=== PATIENT | female | born 2000 | race Caucasian/White ===

== ENCOUNTER 2020-05-27 06:42 | Outpatient (CLI) | payer SELFPAY ==
--- NOTE | 2020-05-27 06:57 | NM_ITS ---
WS: [id number] NUCLEAR MEDICINE HIDA SCAN CLINICAL INFORMATION: CHRONIC ABDOMINAL PAIN TECHNIQUE: Following intravenous administration of 7.7 mCi of technetium 99m mebrofenin, images of th e abdomen were obtained over the course of 60 minutes. Next, gallbladder ejection fraction was determ ined by obtaining preprandial and one-hour postprandial images of the gallbladder following oral gary stion of Ensure. COMPARISON: None. FINDINGS: Normal hepatic uptake at 5 minutes. Right hepatic lobe appears enlarged. Photopenic defect in the lef t hepatic lobe suspicious for underlying hepatic lesion or hepatic cyst. This can be further evaluate d with contrast-enhanced CT abdomen pelvis liver phase protocol. No prior examinations for compariso n. Gallbladder is visualized by 10 to 15 minutes. No evidence of acute cholecystitis. Normal small bowel activity. No evidence of choledocholithiasis. Contrast reflux visualized into the stomach. Normal gallbladder ejection fraction 98%. No evidence of chronic cholecystitis. NM/NM hepatobiliary w phar* [id number] IMPRESSION: 1. No evidence of acute or chronic cholecystitis. 2. Normal gallbladder ejection fraction 98%. No evidence of chronic cholecysti tis. 3. Photopenic defect in the left hepatic lobe suspicious for underlying hepati c lesion. Recommend further evaluation with contrast-enhanced CT abdomen pelvis liver phase protocol. 4. Hepatomegaly.
== END 2020-05-27 06:43 | disposition home or self-care (01) ==
LOC: RAD 06:46
PROVIDERS: Visit Provider Nurse Practitioner Family
DX: R11.2 Nausea with vomiting, unspecified (principal); R10.9 Unspecified abdominal pain; G89.29 Other chronic pain; R16.0 Hepatomegaly, not elsewhere classified
CPT/HCPCS: 78227; A9537

== ENCOUNTER → 2020-06-24 15:23 | Outpatient (BNVA) | payer SELFPAY | PROVIDERS: PCP Nurse Practitioner Family; Visit Provider Internal Medicine | DX: Z01.812 Encounter for preprocedural laboratory examination (principal); Z20.828 Contact with and (suspected) exposure to other viral communicable diseases | CPT/HCPCS: 87635 ==

== ENCOUNTER 2020-06-25 11:50 | Outpatient (CLI) | payer SELFPAY ==
--- NOTE | 2020-06-25 12:02 | CT_ITS ---
WS: [id number] CT ABDOMEN WITH CONTRAST HISTORY: HEPATOMEGALY Contiguous single phase 5 mm axial imaging performed to the abdomen. Oral contrast has been provided. Coronal and sagittal reformats are submitted. All CT scans at [facility] use at least on e of these dose optimization techniques: automated exposure control; mA and/or kV adjustment per saji ent size (includes targeted exams where dose is matched to clinical indication); or iterative reconst ruction. CONTRAST: Omnipaque 300; 75 mL IV. DLP: 360.85 mGycm COMPARISON: Nuclear medicine hepatobiliary scan 05/27/2020. Lower thorax: Unremarkable. Liver: Liver is normal size extending over length of 15 cm. There is a Nikolas's lobe present. There a re no masses identified. Photopenic defect on the recent HIDA scan is probably the falciform ligament . No bile duct dilatation. Gallbladder: Normal. Pancreas: Normal. Spleen: Normal. Adrenals: Normal. Right kidney: Normal. Left kidney: Normal. Aorta: Normal. GI tract: Marked constipation the visualized GI tract throughout the abdomen. No adenopathy or free fluid. Abdominal wall: No hernia. Visualized osseous structures: 2 mm anterolisthesis of L5. Bilateral pars defects at L5. CT/CT abdomen w con* [id number] IMPRESSION: 1. Normal size liver. Nikolas's lobe and no mass. 2. Grade 1 spondylolisthesis of L5 with bilateral pars defects. 3. No ascites or adenopathy. 4. Constipation.
[2020-06-25] MEDS: iohexol 300 mg/mL 50 mL Btl PO (12:43)
[2020-06-25] MEDS: iohexol 300 mg/mL 100 mL Btl IV (13:03)
== END 2020-06-25 11:51 | disposition home or self-care (01) ==
LOC: RADWPI 11:56
PROVIDERS: PCP Nurse Practitioner Family; Visit Provider Nurse Practitioner Family
DX: R16.0 Hepatomegaly, not elsewhere classified (principal); K59.00 Constipation, unspecified; M43.16 Spondylolisthesis, lumbar region; Q44.7 Other congenital malformations of liver
CPT/HCPCS: 74160; Q9967

== ENCOUNTER 2020-06-30 08:34 | Day surgery (SDC) | payer SELFPAY ==
[2020-06-26 10:21] VITALS: BMI 19.7
[2020-06-30 08:55] VITALS: BP 120/75; PULSE 70; RESP 18; TEMP 37.3; O2SAT 99
[2020-06-30] MEDS: sodium chloride 0.9% 1,000 ML 30 ML IV (09:09)
--- NOTE | 2020-06-30 09:14 | ANES.PREANE2 ---
Pre-Anesthetic Assessment Pre-Anesthetic Assessment: Height/Weight: Height 1.52 m Weight 45.813 kg Temp Pulse Resp BP Pulse Ox 99.2 F 70 18 120/75 99 06/30/20 08:55 06/30/20 08:55 06/30/20 08:55 06/30/20 08:55 06/30/20 08:55 Preop Diagnosis: EGD Proposed Procedure: Operation Date: 06/30/20 10:00 Proposed Procedures p EGD 44186 R10.11(Not Applicable) - Martin Finney MD Familial anesthetic complications: None Was Beta Ana taken within 24 hours: N/A Last intake: Intake Last Liquid Date 06/29/20 Last Liquid Time 20:00 Last Solid Date 06/29/20 Last Solid Time 23:50 Social: Social History: No alcohol and No tobacco Exam: Pre-Anes Outpt Exam: alert, oriented x 3, clear to auscultation bilaterally and regular rate & rhythm Airway: Cervical ROM: WNL MP: 2 Dentition: Full Anesthetic Plan: ASA status: 1 Anesthesia: MAC Risk of > 500 ml blood loss (7ml/kg in children): No Meds/Allergies Current Medications: Current Medications Generic Name Dose Route Start Last Admin Trade Name Freq PRN Reason Stop Dose Admin Sodium Chloride 1,000 mls @ 30 ml s/hr 06/30/20 08:45 06/30/20 09:09 Sodium Chloride 0.9% IV 30 mls/hr .Q24H TEE Administration PFSH Anesthesia PFSH: Social History (Updated 06/24/20 @ 13:59 by RYANN Hunt) Smoking and tobacco status: never smoked Alcohol intake: never Adopted: No Marital status: Single History of recent travel: No Data Anesthesia Cardiac Studies: No Data to Display
--- NOTE | 2020-06-30 09:32 | W.PM.OPSUD ---
Surgery/Procedure H&P Update DATE OF PROCEDURE: June 30, 2020 DATE H&P PERFORMED: 06/24/20 PREOP DIAGNOSIS: EGD PLANNED PROCEDURE: Operation Date: 06/30/20 10:00 Proposed Procedures p EGD 87172 R10.11(Not Applicable) - Martin Finney MD
[2020-06-30 10:55] LABS: OR HCG Qualitative Urine Negative (Negative)
[2020-06-30 10:58] VITALS: BP 109/57; PULSE 79; RESP 16; TEMP 36.8; O2SAT 99
[2020-06-30 11:13] VITALS: BP 108/75; PULSE 72; RESP 16; TEMP 36.7; O2SAT 100
--- NOTE | 2020-06-30 15:50 | ANE.PACU2 ---
Inpatient post-anesthesia follow up: Airway intact: Yes Vital signs: Temperature 98.0 F Pulse Rate 72 Respiratory Rate 16 Blood Pressure 108/75 Pulse Oximetry 100 Oxygen Delivery Me thod Room Air Oxygen Flow Rate 3 Fraction of Inspir ed Oxygen Hydration adequate: Yes Nausea and vomiting: No Pain level: 1 Mental status: Baseline
== END 2020-06-30 12:10 | disposition home or self-care (01) ==
PROVIDERS: Anesthesiology; PCP Nurse Practitioner Family; Visit Provider Internal Medicine
PROC: 0DJ08ZZ Inspection of Upper Intestinal Tract, Via Natural or Artificial Opening Endoscopic (ICD-10-PCS; CPT 43235; principal; 2020-06-30 10:00)
DX: R10.11 Right upper quadrant pain (principal)
CPT/HCPCS: 43235; 84703; J7030

== ENCOUNTER → 2020-08-21 13:50 | Outpatient (BNVA) | payer SELFPAY | PROVIDERS: PCP Nurse Practitioner Family; Visit Provider Surgery | DX: Z20.822 Contact with and (suspected) exposure to COVID-19 (principal) | CPT/HCPCS: 87635 ==

== ENCOUNTER 2020-08-27 05:28 | Day surgery (SDC) | payer SELFPAY ==
[2020-08-26 15:10] VITALS: BMI 21.1
[2020-08-27] VITALS (9 sets, daily range): BP systolic 109–124; BP diastolic 75–85; PULSE 62–83; RESP 6–21; TEMP 36.4–37; O2SAT 99–100
[2020-08-27 06:17] LABS: OR HCG Qualitative Urine Negative (Negative)
[2020-08-27] MEDS: sodium chloride 0.9% 1,000 ML 30 ML IV (06:34)
--- NOTE | 2020-08-27 06:43 | W.PM.OPSFHP ---
Same Day Surgery H&P Indication for Procedure/HPI DATE OF PROCEDURE: August 27, 2020 CHIEF COMPLAINT/INDICATIONFOR SURGICAL PROCEDURE: lap amara PREOP DIAGNOSIS: EGD PLANNED PROCEDRUE: Operation Date: 08/27/20 07:00 Proposed Procedures p LAPAROSCOPIC POSS OPEN CHOLECYSTECTOMY 55393 r10.11(Not Applicable) - Jaden Fitzgerald MD Medications/Allergies* Home Medications Medication Instructions Recorded Confirmed Type Wellbutrin 150 mg PO DAILY 08/26/20 08/26/20 History Allergies/Adverse Reactions Allergy/AdvReac Type Severity Reaction Status Date / Time No Known Allergies Allergy Verified 08/26/20 15:08 Current Medications: Generic Name Dose Route Start Last Admin Trade Name Freq PRN Reason Stop Dose Admin Sodium Chloride 1,000 mls @ 30 mls/hr 08/27/20 06:15 08/27/20 06:34 Sodium Chloride 0.9% IV 08/28/20 06:14 30 mls/hr .Q24H TEE Administration Pertinent History/Comorbid Conditions* Medical History (Updated 07/21/20 @ 12:38 by Jaden Fitzgerald MD) GERD (gastroesophageal reflux disease) Surgical History (Updated 07/21/20 @ 09:12 by Jaden Fitzgerald MD) H/O esophagogastroduodenoscopy Social History Smoking and tobacco status: never smoked Alcohol intake: never Adopted: No Marital status: Single History of recent travel: No Pertinent Exam Findings alert, oriented x 3 and regular rate & rhythm Recommendations Surgery/Procedure today Coding Level of Care Code 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
[2020-08-27] MEDS: scopolamine 1.5 Patch 1 PATCH TRANSDERMA (06:58)
--- NOTE | 2020-08-27 07:05 | ANES.PREANE2 ---
Pre-Anesthetic Assessment Pre-Anesthetic Assessment: Height/Weight: Height 1.52 m Weight 48.988 kg Temp Pulse Resp BP Pulse Ox 98.6 F 83 18 124/84 100 08/27/20 06:12 08/27/20 06:12 08/27/20 06:12 08/27/20 06:12 08/27/20 06:12 Preop Diagnosis: ruq pain Proposed Procedure: Operation Date: 08/27/20 07:00 Proposed Procedures p LAPAROSCOPIC POSS OPEN CHOLECYSTECTOMY 82649 r10.11(Not Applicable) - Jaden Fitzgerald MD Was Beta Ana taken within 24 hours: N/A Was Clonidine taken within 24 hours: N/A Last intake: Intake Last Liquid Date 08/26/20 Last Liquid Time 17:00 Last Solid Date 08/26/20 Last Solid Time 17:00 Social: Social History: No alcohol and No tobacco Exam: Pre-Anes Outpt Exam: alert, oriented x 3, clear to auscultation bilaterally and regular rate & rhythm Airway: Submandibular: WNL Cervical ROM: WNL MP: 2 Dentition: Full History/ROS: No significant history except as noted Neuropsych: Neuropsych: Anxiety and Depression Anesthetic Plan: ASA status: 2 Anesthesia: General Risk of > 500 ml blood loss (7ml/kg in children): No Meds/Allergies Current Medications: Current Medications Generic Name Dose Route Start Last Admin Trade Name Freq PRN Reason Stop Dose Admin Sodium Chloride 1,000 mls @ 30 ml s/hr 08/27/20 06:15 08/27/20 06:34 Sodium Chloride 0.9% IV 08/28/20 06:14 30 mls/hr .Q24H TEE Administration PFSH Anesthesia PFSH: Medical History GERD (gastroesophageal reflux disease) Surgical History H/O esophagogastroduodenoscopy Social History Smoking and tobacco status: never smoked Alcohol intake: never Adopted: No Marital status: Single History of recent travel: No Data Anesthesia Other Labs: Laboratory Results - last 48 hr 08/27/20 06:09 Urine HCG, Qual Negative Cardiac Studies: No Data to Display
--- NOTE | 2020-08-27 07:58 | SUR.PHASEI ---
PT SLEEPS QUIETLY WITH GOOD RESP NOTED , ORAL AIRWAY IN PLACE, VSS ABD SOFT FLAT WITH 4 SITES WITH EXOFIN D/I BILAT SCDS ON.
--- NOTE | 2020-08-27 08:04 | SUR.PHASEI ---
ORAL AIRWAY OUT PT MOVES AND TURNS HEAD BUT DOES NOT OPEN EYES OR RESPOND VERBALLY.
--- NOTE | 2020-08-27 08:09 | PM.OP ---
Operative Report Date of procedure: August 27, 2020 Pre-op Diagnosis: Chronic cholecystitis Post-op diagnosis: same Procedure Done: Laparoscopic cholecystectomy Specimens removed/disposition: Gallbladder Surgeon: Jaden Fitzgerald Anesthesia: General Condition: stable Disposition: PACU Procedure: The patient was taken to the operating room and was intubated under general anesthesia. After the antibiotic had been administered, the abdomen was prepped and draped in a sterile manner. Using a #15 blade, a 1 centimeter infraumbilical curvilinear incision was made and using an open Shilpi technique the peritoneal cavity was entered. A 10 millimeter port was placed and 15 millimeters of pneumoperitoneum was created. A 10 millimeter, 30 degrees scope was then introduced. Three 5 millimeter ports were placed in the epigastric, midclavicular and the anterior axillary line two fingerbreadths below the costal margin on the right side under the direct visualization. Ratcheted forceps were introduced into the lateral most port and was used to retract the fundus of the gallbladder cephalad and using forceps the infundibulum of the gallbladder was retracted laterally. Using L-hook cautery the peritoneum overlying the Calot's triangle was opened medially and laterally until the cystic duct and the cystic artery were skeletonized. Dissection was carried along the body of the gallbladder and after ensuring critical view of safety, 4 clips applied on the cystic duct and 3 clips applied on the cystic artery and cut leaving, 3 clips on the remaining portion of the duct and 2 clips on the remaining portion of the artery. The rest of the gallbladder was dissected off the liver using L-hook cautery. There was no bleeding or bile leaking noted from the gallbladder fossa and the clips appeared to be in place. An EndoCatch bag was introduced to remove the gallbladder. All the ports were removed under direct visualization and there was no bleeding noted from the port sites. The fascia of the umbilicus was closed using [id number] 0 Vicryl sutures and the subcutaneous tissue was approximated using 3-0 Vicryl sutures. The skin at all four ports were closed using 4-0 Monocryl and Dermabond. A total of 10 millimeters of 0.5% Marcaine was infiltrated around the port sites. The patient was stable throughout the procedure.
[2020-08-27] MEDS: HYDROcodone-acetaminophen 5-325 mg Tablet 1 TAB PO (09:01)
--- NOTE | 2020-08-27 13:05 | ANE.PACU2 ---
Inpatient post-anesthesia follow up: Airway intact: Yes Vital signs: Temperature 97.8 F Pulse Rate 64 Respiratory Rate 18 Blood Pressure 115/80 Pulse Oximetry 100 Oxygen Delivery Me thod Room Air Oxygen Flow Rate 6 Fraction of Inspir ed Oxygen Hydration adequate: Yes Nausea and vomiting: No Pain level: 2 Mental status: Baseline
== END 2020-08-27 10:00 | disposition home or self-care (01) ==
PROVIDERS: Anesthesiology; PCP Nurse Practitioner Family; Visit Provider Surgery
PROC: 0FT44ZZ Resection of Gallbladder, Percutaneous Endoscopic Approach (ICD-10-PCS; CPT 47562; principal; 2020-08-27 07:00)
DX: K81.1 Chronic cholecystitis (principal); F41.9 Anxiety disorder, unspecified; F32.9 Major depressive disorder, single episode, unspecified; K21.9 Gastro-esophageal reflux disease without esophagitis
CPT/HCPCS: 47562; 81025; 84703; 88304; J0690; J1100; J2250; J2405; J2704; J2710; J3010; J3490; J7030

== ENCOUNTER 2021-08-25 09:10 | Emergency (ER) | payer MEDICAID, SELFPAY ==
[2021-08-25 09:22] VITALS: BP 117/77; PULSE 92; RESP 16; O2SAT 99; BMI 19.5
--- NOTE | 2021-08-25 09:29 | W.ED.DIZZY ---
HPI - Dizziness General: Chief Complaint: Dizziness Stated Complaint: dizziness/nausea Time Seen by Provider: 08/25/21 09:11 Source: patient Mode of arrival: ambulatory Limitations: no limitations History of Present Illness: HPI Narrative: Patient is a 20-year-old female presents to ED today with a complaint of dizziness and nausea. Patient states she woke up this morning and felt normal. She states she was at work when she began feeling nauseous and lightheaded. She felt like she might pass out but never did. Patient states she never had any chest pain, shortness of breath, difficulty breathing, or palpitations. No syncopal episode. She admittedly has not ate anything this morning. Patient states she has had previous episodes like this but not in many months. She states her dizziness seems to be worse when she goes from a seated to standing position quickly. Patient upon arrival to the ED is seated on her bed and states her symptoms have greatly improved. Symptoms do not seem to be brought on by head movement or exertion. She is not having any visual changes. No tinnitus, hearing loss, ear pain. She reports a stomach bug approximately a week ago but has not had any recent vomiting or diarrhea. No fevers. No headache. MD elicited complaint: dizziness, lightheadedness and other (nausea) Onset (ago): hour(s) Timing: intermittent Context: change in body position History of similar symptoms: Yes Exacerbating factors: change in body position Relieving factors: rest Associated symptoms: Reports nausea; Denies chest pain, chills, headache(s), malaise, palpitations, syncope or vomiting Associated neuro symptoms: Deny confusion or numbness in extremities Stroke scale total: 0 Review of Systems Const: Denies: fever(s), chills, body aches, fatigue or malaise Eyes: Denies: change in vision, blurry vision, photophobia, floaters or seeing flashes Card: Reports: lightheadedness; Denies: chest pain, palpitations, irregular heart rhythm, edema, swelling of feet/ankles, syncope, pre-syncope, dyspnea on exertion, orthopnea, leg pain with exertion or acrocyanosis Resp: Denies: dyspnea, productive cough, non-productive cough, wheezing, hemoptysis or chest congestion GI: Reports: nausea; Denies: abdominal pain, vomiting, diarrhea or change in bowel habits : Denies: flank pain, dysuria, hematuria or pelvic pain Musc: Denies: neck pain, back pain, extremity pain or joint pain Skin/Breast: Denies: rash Neuro: Denies: headache(s), numbness in extremities, weakness in extremities, sensory changes, lack of coordination, difficulty walking, frequent falls, confusion, Slurred speech present, difficulty communicating thoughts or seizure-like activity PFSH ED PFSH: Medical History GERD (gastroesophageal reflux disease) Surgical History H/O esophagogastroduodenoscopy Status post laparoscopic cholecystectomy (08/27/20) Social History Smoking and tobacco status: never smoked Alcohol intake: never Adopted: No Marital status: Single History of recent travel: No Physical Exam Const: COMMON NORMALS: no acute distress, patient oriented x3, no limitations, alert and well nourished ORIENTATION/CONSCIOUSNESS: Yes awake, Yes oriented to person, Yes oriented to place and Yes oriented to time HENMT: COMMON NORMALS: normocephalic, atraumatic, hearing grossly normal bilaterally, EAC's normal and TM's normal bilaterally HEAD & SCALP: normal to inspection, normocephalic and atraumatic EXTERNAL AUDITORY CANAL: EAC's normal TYMPANIC MEMBRANE: TM's normal bilaterally Eye: COMMON NORMALS: Equal, round and reactive pupils present and EOMs intact bilaterally GENERAL EYE: appearance normal, both eyes and all related structures PUPIL: Yes Equal, round and reactive pupils present OTHER: no nystagmus Neck/C-Spine: COMMON NORMALS: full ROM, no lymphadenopathy and no meningeal signs Resp: COMMON NORMALS: normal respiratory effort and clear to auscultation bilaterally AUSCULTATION: clear to auscultation bilaterally Cardio: COMMON NORMALS: regular rate and regular rhythm RATE: regular rate RHYTHM: regular rhythm Extremity: COMMON NORMALS: normal to inspection, capillary refill normal, no joint enlargement, no clubbing, cyanosis or edema, no calf tenderness and no pedal edema Neuro: ARLIN COMA SCALE: document GCS findings [place] coma scale eye opening: Spontaneous [place] coma scale verbal response: Orientated Arlin coma scale motor response: Obey commands [place] coma scale total score: 15 COMMON NORMALS: patient oriented x3, CN's II-XII intact bilaterally, moves all extremities, no focal motor deficits, no sensory deficits noted and gait normal SENSORIUM/ORIENTATION: Yes alert, Yes oriented to person, Yes oriented to place and Yes oriented to time MENINGEAL SIGNS: Yes no meningeal signs MOTOR EXAM: 5/5 motor strength present throughout Skin: COMMON NORMALS: no rashes or lesions noted GENERAL SKIN EXAM: no rashes or lesions noted Course Vital Signs: Vital signs: Vital Signs Pulse Rate 93 08/25/21 09:59 Respiratory Rate 16 08/25/21 09:22 Blood Pressure 110/73 08/25/21 09:59 Pulse Oximetry 99 08/25/21 09:22 MDM - Dizziness Medical Decision Making Patient continues to feel improved while here. Blood work/UA is unremarkable. Vital signs are stable with negative orthostatics. Recommend rest and follow up with PCP if symptoms persist. Lab Data : 08/25/21 09:35 08/25/21 09:35 Laboratory Results WBC 7.4 10^3/uL (4.0-10.0) 08/25/21 09:35 RBC 4.65 10^6/uL (4.1-5.3) 08/25/21 09:35 Hgb 13.2 g/dL (11.5-15.3) 08/25/21 09:35 Hct 40.2 % (37.0-47.0) 08/25/21 09:35 MCV 86.5 fl (81-99) 08/25/21 09:35 MCH 28.4 pg (28.0-34.0) 08/25/21 09:35 MCHC 32.8 g/dL (30.0-36.0) 08/25/21 09:35 RDW 14.1 % (12.1-15.1) 08/25/21 09:35 Plt Count 197 10^3/cmm (130-400) 08/25/21 09:35 MPV 11.6 fL (7.4-10.4) H 08/25/21 09:35 Neut % (Auto) 74.2 % 08/25/21 09:35 Lymph % (Auto) 13.9 % 08/25/21 09:35 Cataño % (Auto) 7.9 % 08/25/21 09:35 Eos % (Auto) 3.0 % 08/25/21 09:35 Baso % (Auto) 0.7 % 08/25/21 09:35 Neut # (Auto) 5.52 10^3/uL (1.8-7.7) 08/25/21 09:35 Lymph # (Auto) 1.0 10^3/uL (0.8-4.8) 08/25/21 09:35 Cataño # (Auto) 0.6 10^3/uL (0.2-0.9) 08/25/21 09:35 Eos # (Auto) 0.2 10^3/uL (0.0-0.8) 08/25/21 09:35 Baso # (Auto) 0.1 10^3/uL (0.0-0.1) 08/25/21 09:35 Nucleated RBC % (auto) 0 % 08/25/21 09:35 Nucleated RBCs # 0.0 /100WBC 08/25/21 09:35 Sodium 134 mmol/L (136-145) L 08/25/21 09:35 Potassium 3.8 mmol/L (3.5-5.1) 08/25/21 09:35 Chloride 100 mmol/L (98-107) 08/25/21 09:35 Carbon Dioxide 24 mmol/L (22-29) 08/25/21 09:35 Anion Gap 13.8 (5-19) 08/25/21 09:35 BUN 18 mg/dL (6-20) 08/25/21 09:35 Creatinine 0.8 mg/dL (0.5-0.9) 08/25/21 09:35 GFR Calculation 90.5 mL/min (90-130) 08/25/21 09:35 Glucose 99 mg/dL (65-115) 08/25/21 09:35 Calculated Osmolality 280 mOsm/kg (285-295) L 08/25/21 09:35 Calcium 9.6 mg/dL (8.5-10.5) 08/25/21 09:35 Total Bilirubin 0.4 mg/dL (0.15-1.2) 08/25/21 09:35 AST 20 U/L (0-32) 08/25/21 09:35 ALT 12 U/L (0-33) 08/25/21 09:35 Alkaline Phosphatase 78 IU/L (35-105) 08/25/21 09:35 Total Protein 7.1 g/dL (6.6-8.7) 08/25/21 09:35 Albumin 4.5 g/dL (3.5-5.2) 08/25/21 09:35 Globulin 2.6 g/dL (1.3-4.6) 08/25/21 09:35 HCG, Qual Negative (Negative) 08/25/21 09:35 Urine Color Yellow (Yellow) 08/25/21 09:55 Urine Appearance Hazy (CLEAR) A 08/25/21 09:55 Urine pH 5 (5-7) 08/25/21 09:55 Ur Specific Vale 1.030 (1.005-1.030) 08/25/21 09:55 Urine Protein Neg (Negative) 08/25/21 09:55 Urine Glucose (UA) Norm (Normal) 08/25/21 09:55 Urine Ketones Negative (Negative) 08/25/21 09:55 Urine Blood Neg (Negative) 08/25/21 09:55 Urine Nitrate Negative (Negative) 08/25/21 09:55 Urine Bilirubin 1+ (Negative) H 08/25/21 09:55 Urine Urobilinogen Not Reportable 08/25/21 09:55 Ur Leukocyte Esterase Negative (Negative) 08/25/21 09:55 Discharge Plan Discharge Patient Disposition: Home Clinical Impression: Lightheadedness Condition: Stable Prescriptions: No Action bupropion HCl 75 mg tablet 75 mg PO DAILY 0RF Cct-Oi-Bvjhbyad 0.18/0.215/0.25 mg-25 mcg Tablet 1 tab PO DAILY 0RF Discharge Orders: Discharge ED (Routine); Ordered 08/25/21 Ordered By: Lacey Riley Referrals: Dorys Hammonds [Primary Care Provider] - Patient Instructions: Lightheadedness (ED) Stand Alone Forms: Work/School Release Coding Level of Care Code 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
[2021-08-25 09:45] LABS: Basophils # 0.1 10^3/uL (0.0-0.1); Basophils % 0.7 %; Eosinophils # 0.2 10^3/uL (0.0-0.8); Hematocrit 40.2 % (37.0-47.0); Hemoglobin 13.2 g/dL (11.5-15.3); Lymphocytes % 13.9 %; Mean Corpuscular HGB Conc 32.8 g/dL (30.0-36.0); Mean Corpuscular Hemoglobin 28.4 pg (28.0-34.0); Mean Corpuscular Volume 86.5 fl (81-99); Mean Platelet Volume 11.6 fL (7.4-10.4); Monocytes # 0.6 10^3/uL (0.2-0.9); Monocytes % 7.9 %; Neutrophils # 5.52 10^3/uL (1.8-7.7); Neutrophils % 74.2 %; Nucleated Red Blood Cells % 0 %; Platelet Count 197 10^3/cmm (130-400); Red Blood Count 4.65 10^6/uL (4.1-5.3); Red Cell Distribution Width 14.1 % (12.1-15.1); White Blood Count 7.4 10^3/uL (4.0-10.0)
[2021-08-25 09:59] VITALS: BP 110/73; BP 115/84; BP 126/87; PULSE 101; PULSE 93; PULSE 95
[2021-08-25 10:02] LABS: HCG, Serum Qual Negative (Negative)
[2021-08-25 10:06] LABS: Alanine Aminotransferase 12 U/L (0-33); Albumin Level 4.5 g/dL (3.5-5.2); Alkaline Phosphatase 78 IU/L (35-105); Anion Gap 13.8 (5-19); Aspartate Amino Transferase 20 U/L (0-32); Blood Urea Nitrogen 18 mg/dL (6-20); Calcium 9.6 mg/dL (8.5-10.5); Carbon Dioxide 24 mmol/L (22-29); Chloride 100 mmol/L (98-107); Globulin 2.6 g/dL (1.3-4.6); Glomerular Filtration Rate 90.5 mL/min (90-130); Glucose 99 mg/dL (65-115); Osmolality Calculated 280 mOsm/kg (285-295); Potassium 3.8 mmol/L (3.5-5.1); Sodium 134 mmol/L (136-145); Total Bilirubin 0.4 mg/dL (0.15-1.2); Total Protein 7.1 g/dL (6.6-8.7)
[2021-08-25] MEDS: ondansetron 2 mg/ML SDV 2 mL IVP (10:08)
[2021-08-25] MEDS: sodium chloride 0.9% 1,000 ML 500 ML IV (10:08)
[2021-08-25 10:45] LABS: Glucose Urine UA Norm (Normal); Protein Urine Neg (Negative); pH Urine 5 (5-7)
[2021-08-25 10:46] LABS: Bilirubin Urine 1+ (Negative); Blood Urine Neg (Negative); Ketones Urine Negative (Negative); Nitrate Urine Negative (Negative)
[2021-08-25 10:47] LABS: Leukocyte Esterase Urine Negative (Negative)
[2021-08-25 10:50] LABS: Add Urine Microscopic? YES; Urine Appearance Hazy (CLEAR); Urine Color Yellow (Yellow)
[2021-08-25 11:51] LABS: Add Urine Culture? No; Bacteria Urine 1+ /hpf; Squamous Epithelial Cell Urine 15-25 /hpf (0-5); WBC Urine 0-4 /hpf (0-5)
== END 2021-08-25 11:11 | disposition home or self-care (01) ==
PROVIDERS: Emergency Provider Physician Assistant; PCP Nurse Practitioner Family
DX: R42 Dizziness and giddiness (principal); K21.9 Gastro-esophageal reflux disease without esophagitis
CPT/HCPCS: 80053; 81001; 84703; 85025; 96361; 96374; 99283; J2405; J7030

== ENCOUNTER → 2022-12-28 13:55 | Outpatient (BNVA) | payer MEDICAID, SELFPAY | PROVIDERS: PCP Family Medicine; Visit Provider Nurse Practitioner Family | DX: R05.9 Cough, unspecified (principal) | CPT/HCPCS: 87426 ==

== ENCOUNTER → 2023-10-06 12:24 | Outpatient (BNVA) | payer MEDICAID, SELFPAY | PROVIDERS: PCP Family Medicine; Visit Provider Family Medicine | DX: Z30.9 Encounter for contraceptive management, unspecified (principal); N92.6 Irregular menstruation, unspecified; K21.9 Gastro-esophageal reflux disease without esophagitis; F32.0 Major depressive disorder, single episode, mild; R42 Dizziness and giddiness | CPT/HCPCS: 81025 ==